=== PATIENT | male | born 1980 | race Two or more races ===

== ENCOUNTER 2020-08-13 17:00 | Emergency (ER) | payer MEDICAID ==
[~2020-08-13] VITALS: Ht 170.2 cm; Wt 90.7 kg
[~2020-08-13 17:00] MED LIST: BUPR1TAB SL
--- NOTE | 2020-08-13 17:45 | NUR ---
RAQUEL FROM HOME TO ER BED 5. AAOX4. NOT IN RESP DISTRESS. BROUGHT IN FOR R SIDED ABDOMINAL PAIN STARTED THIS MORNING AROUND 0500 PER PT STATED. PT DOES REPORT NAUSEA AND VOMMITING. DENIES DIARRHEA. PAIN IS RATED 10/10 SHARP ACHING. WAS A THE BEDSIDE FOR EVAL. ORDERS RECEIVED NOTED AND CARRIED OUT. IV LINE ESTABLSIHED ON R AC 18G. BLOOD DRAWN AND GIVEN TO [employer] OPERATOR AT BEDSIDE.
[2020-08-13] MEDS ORDERED: IV NS 0.9% 1,000 ML BAG IV ONE (18:00)
[2020-08-13 18:17] LABS: BASOPHILS % (AUTO) 0.3 % (0.0-2.0); EOSINOPHILS % (AUTO) 0.1 % (0.0-6.0); HEMATOCRIT 44 % (39-51); HEMOGLOBIN 14.5 g/dL (13.5-17.5); LYMPHOCYTES # (AUTO) 1.1 /CMM (0.8-4.8); LYMPHOCYTES % (AUTO) 7.9 % (20.0-44.0); MEAN CORPUSCULAR HGB CONC 33 g/dl (31.0-36.0); MEAN CORPUSCULAR VOLUME 87 fL (80-96); MONOCYTES # (AUTO) 0.5 /CMM (0.1-1.30); MONOCYTES % (AUTO) 3.4 % (2.0-12.0); NEUTROPHILS # (AUTO) 11.9 /CMM (1.8-8.9); NEUTROPHILS % (AUTO) 88.3 % (43.0-81.0); PLATELET COUNT (AUTO) 353 /CMM (150-450); RED BLOOD CELL COUNT(AUTO) 5.08 MIL/uL (4.5-6.0); WHITE BLOOD COUNT (AUTO) 13.5 K/uL (4.3-11.0)
[2020-08-13 18:39] LABS: CALCIUM, SERUM 9.3 mg/dL (8.5-10.1); CREATININE 0.7 mg/dL (0.6-1.3); POTASSIUM 3.6 mmol/L (3.5-5.1)
[2020-08-13 18:45] LABS: ALBUMIN 3.6 g/dL (3.4-5.0); BILIRUBIN,DIRECT 0.2 mg/dL (0.0-0.2); TOTAL PROTEIN, SERUM 7.5 g/dL (6.4-8.2)
[2020-08-13] MEDS ORDERED: IOHEXOL-300 100 ML VIAL IV ONE (18:59)
[2020-08-13] MEDS ORDERED: IV NS 0.9% 250 ML IV ONE (18:59)
[2020-08-13] MEDS ORDERED: HYDROMORPHONE 1 MG/1 ML DISP.SYRIN IV ONE (20:00)
[2020-08-13] MEDS ORDERED: ONDANSETRON HCL/PF - ER 4 MG/2 ML VIAL IV ONE (20:00)
[2020-08-13] MEDS ORDERED: PIPERACILLIN /TAZOBACTAM 3.375 G in IV D5W 50 ML IV ONE (20:00)
[2020-08-13] MEDS ORDERED: HYDROMORPHONE 1 MG/1 ML DISP.SYRIN ONE (20:03)
[2020-08-13] MEDS ORDERED: ONDANSETRON HCL/PF 4 MG/2 ML VIAL ONE (20:03)
[2020-08-13] MEDS ORDERED: PIPERACILLIN /TAZOBACTAM 3.375 G VIAL IV ONE (20:03)
--- NOTE | 2020-08-13 20:10 | NUR ---
PT REFUSED TO HAVE A NASOGASTRIC TUBE. IS AWARE.
--- NOTE | 2020-08-13 20:47 | NUR ---
REC'D NEG COVID RESULTS FROM LAB. AWARE
--- NOTE | 2020-08-13 21:01 | NUR ---
SPOKE WITH [facility] [employer] FOR TRANSFER. TRYING TO GET TRANSFER TO [facility]. WILL CALL BACK WITH MORE INFO
--- NOTE | 2020-08-13 22:55 | NUR ---
PT BEING TRANSFERRED ETA 30 MINS BY [facility]. REPORT NUMBER IS [id number] ACCEPTING MD IS GONZALO AND PT WILL BE IN ROOM 1010A.
--- NOTE | 2020-08-13 23:24 | NUR ---
Patient does not wish to proceed with medical care recommended by Willis Holden. Patient given information related to possible complications, up to and including , which could occur as a result of leaving the hospital at this time. Patient verbalizes understanding of risks involved due to leaving against medical advice. Patient has signed AMA form.
[2020-08-13 23:25] LABS: APPEARANCE,URINE CLEAR (CLEAR); BILIRUBIN,URINE NEGATIVE (NEGATIVE); BLOOD, URINE TRACE-INTA Ery/uL (NEGATIVE); COLOR,URINE YELLOW (YELLOW); KETONES,URINE NEGATIVE (NEGATIVE); LEUKOCYTE ESTERASE ,URINE NEGATIVE (NEGATIVE); NITRITE, URINE NEGATIVE (NEGATIVE); PH,URINE 6.5 (5.0-8.0); PROTEIN,URINE NEGATIVE (NEGATIVE); UGLUCOSE NEGATIVE (NEGATIVE)
[2020-08-13 23:26] VITALS: BP 116/72
[2020-08-14 00:07] LABS: BACTERIA,URINE None seen /HPF (None Seen); MUCUS,URINE Few /LPF (None Seen); SQUAMOUS EPITHELIAL CELL,UR Few /HPF (None Seen); WBC,URINE 0-2 /HPF (0-3)
== END 2020-08-13 23:26 | disposition left against medical advice (07) ==
LOC: ER 17:54
DX: K56.600 Partial intestinal obstruction, unspecified as to cause (principal); E86.0 Dehydration; R11.2 Nausea with vomiting, unspecified; Z20.828 Contact with and (suspected) exposure to other viral communicable diseases; K40.90 Unilateral inguinal hernia, without obstruction or gangrene, not specified as recurrent; Z88.6 Allergy status to analgesic agent
CPT/HCPCS: 36415; 74177; 80048; 80076; 80307; 80320; 81001; 83690; 85025; 87426; 96361; 96365; 96375; 99291; A6403; C9803; J1170; J2405 ×2; J2543 ×2; J7030; J7050; J7060; Q9967; 81000-TC; G0480